=== PATIENT | female | born 1990 | race Caucasian/White ===

== ENCOUNTER → 2017-01-26 | Outpatient (CLI) | payer BC, OTHER | LOC: ULTRA 08:40 | DX: R92.2 Inconclusive mammogram (principal) ==

== ENCOUNTER → 2017-08-16 | Outpatient (CLI) | payer BC, OTHER | LOC: RAD 08:07 | DX: R92.8 Other abnormal and inconclusive findings on diagnostic imaging of breast (principal) ==